=== PATIENT | female | born 1990 | race Two or more races ===

== ENCOUNTER 2021-02-10 13:45 | Emergency (ER) | payer OTHER ==
[~2021-02-10] VITALS: Ht 167.6 cm; Wt 64.4 kg
== END 2021-02-10 15:50 | disposition home or self-care (01) ==
LOC: ER 13:45
DX: S92.331A Displaced fracture of third metatarsal bone, right foot, initial encounter for closed fracture (principal); S92.341A Displaced fracture of fourth metatarsal bone, right foot, initial encounter for closed fracture; W18.39XA Other fall on same level, initial encounter; Y93.89 Activity, other specified; Y92.89 Other specified places as the place of occurrence of the external cause; Y99.8 Other external cause status